=== PATIENT | male | born 1990 | race Two or more races ===

== ENCOUNTER 2021-11-21 08:40 | Emergency (ER) | payer OTHER ==
[2021-11-21 09:10] VITALS: BP 118/73; PULSE 69; TEMP 97.4; BMI 31.4
[2021-11-21 09:45] LABS: THROAT:GRP A STREP DETECTED (NOTDETECTED)
[2021-11-21 11:16] LABS: SARS COV-2 MOLECULAR Negative (Negative)
== END 2021-11-21 09:45 | disposition home or self-care (01) ==
LOC: JER 08:40
DX: J03.90 Acute tonsillitis, unspecified (principal); J02.9 Acute pharyngitis, unspecified
CPT/HCPCS: 87651; 99283-25; C9803; U0003; U0005